=== PATIENT | female | born 1935 | race Caucasian/White ===

== ENCOUNTER 2020-04-11 14:46 | Inpatient (IN) ==
[2020-04-11 17:52] LABS: Adenovirus Not Detected (Not Detect); Bordetella Pertussis Not Detected (Not Detect); Chlamydophila pneumoniae Not Detected (Not Detect); Coronavirus 229E Not Detected (Not Detect); Coronavirus HKU1 Not Detected (Not Detect); Coronavirus NL63 Not Detected (Not Detect); Coronavirus OC43 Not Detected (Not Detect); Human Metapneumovirus Not Detected (Not Detect); Human Rhinovirus/Enterovirus Not Detected (Not Detect); Influenza A Subtype 2009 H1 Not Detected (Not Detect); Influenza B Not Detected (Not Detect); Mycoplasma pneumoniae Not Detected (Not Detect); Parainfluenza Virus 1 Not Detected (Not Detect); Parainfluenza Virus 2 Not Detected (Not Detect); Parainfluenza Virus 3 Not Detected (Not Detect); Parainfluenza Virus 4 Not Detected (Not Detect); Respiratory Syncytial Virus Not Detected (Not Detect); SARS-CoV-2 Not Detected (Not Detect)
[2020-04-11] MEDS ORDERED: *HR* Promethazine 25 MG/ML VIAL IVP PRN (19:23)
[2020-04-11] MEDS ORDERED: Acetaminophen 325 MG TABLET PO PRN (19:23)
[2020-04-11] MEDS ORDERED: Naloxone 0.4 MG/ML INJ IVP PRN (19:23)
[2020-04-11 19:50] LABS: Basophils % 0.5 %; Eosinophils # 0.3 K/mcL (0.0-0.6); Eosinophils % 5.7 %; Hematocrit 26.6 % (35.3-44.9); Hemoglobin 8.1 g/dL (11.5-15.4); Immature Granulocytes % 0.9 % (0-4); Lymphocytes % 34.5 %; Mean Corpuscular HGB Conc 30.5 g/dL (31.6-35.5); Mean Corpuscular Hemoglobin 27.6 pg (28.0-33.3); Mean Corpuscular Volume 90.8 fL (83.0-100.0); Mean Platelet Volume 10.2 fL (9.4-12.4); Monocytes # 0.5 K/mcL (0.0-1.3); Monocytes % 8.4 %; Neutrophils # 2.9 K/mcL (1.6-8.9); Platelet Count 215 K/mcL (140-400); Red Blood Count 2.93 M/mcL (3.82-4.97); Red Cell Distribution Width 14.5 % (11.5-14.5); White Blood Count 5.7 K/mcL (4.3-11.1)
[2020-04-11] MEDS: 0.9 % Sodium Chloride 1,000 ML IVC SCH (20:49)
[2020-04-11] MEDS ORDERED: Dextrose Gel 15 GM/37.5 ML TUBE PO PRN ×2 (20:57)
[2020-04-11] MEDS ORDERED: *HR* Dextrose 50 % in Water (Vial) 50 ML VIAL IVP PRN (20:57)
[2020-04-11] MEDS ORDERED: D5% in Water 1,000 ML IVC PRN (20:57)
[2020-04-11] MEDS: Insulin LISPRO 300 UNITS/3 ML VIAL SQ SCH (21:13)
[2020-04-11] MEDS ORDERED: Budesonide/Formoterol 160/4.5 1 PUFF INH IH SCH (21:22)
[2020-04-11] MEDS ORDERED: Ipratropium/Albuterol Neb 3 ML IH PRN (21:23)
[2020-04-11 22:21] LABS: Estimated Average Glucose 120 mg/dl
[2020-04-12 05:22] LABS: INR 1.2; Prothrombin Time 13.5 Seconds (9.4-12.1)
[2020-04-12 05:38] LABS: Basophils % 0.4 %; Eosinophils # 0.3 K/mcL (0.0-0.6); Eosinophils % 5.5 %; Hematocrit 23.6 % (35.3-44.9); Hemoglobin 7.3 g/dL (11.5-15.4); Immature Granulocytes % 0.9 % (0-4); Lymphocytes # 1.7 K/mcL (0.6-4.6); Lymphocytes % 36.6 %; Mean Corpuscular HGB Conc 30.9 g/dL (31.6-35.5); Mean Corpuscular Hemoglobin 28.7 pg (28.0-33.3); Mean Corpuscular Volume 92.9 fL (83.0-100.0); Mean Platelet Volume 10.7 fL (9.4-12.4); Monocytes # 0.4 K/mcL (0.0-1.3); Monocytes % 8.8 %; Neutrophils # 2.2 K/mcL (1.6-8.9); Platelet Count 200 K/mcL (140-400); Red Blood Count 2.54 M/mcL (3.82-4.97); Red Cell Distribution Width 14.6 % (11.5-14.5); Segmented Neutrophils % 47.8 %; White Blood Count 4.5 K/mcL (4.3-11.1)
[2020-04-12 05:46] LABS: Albumin 2.6 g/dL (3.5-5.7); Bilirubin,Total 0.3 mg/dL (0.3-1.0); Calcium 7.9 mg/dL (8.6-10.3); Globulin 2.5 g/dL (2.4-3.5); Magnesium 2.5 mg/dL (1.6-2.6); Phosphorous 3.4 mg/dL (2.7-4.5); Potassium 5.1 mEq/L (3.5-5.1); Total Protein 5.1 g/dL (6.4-8.9)
[2020-04-12] MEDS: Pantoprazole 40 MG VIAL IVP SCH ×2 (06:02→17:29)
[2020-04-12 06:35] LABS: Bilirubin,Urine Negative (Negative); Blood,Urine Negative (Negative); Clarity,Urine Clear (Clear); Color,Urine Light-Yellow (Yellow); Glucose,Urine (UA) Normal (Normal); Ketones,Urine Negative (Negative); Leukocyte Esterase,Urine Negative (Negative); Nitrite,Urine Negative (Negative); Protein,Urine Negative (Neg-Trace); Specific Gravity,Urine 1.017 (1.010-1.025); Urobilinogen,Urine Normal (Normal)
[2020-04-12] MEDS: Budesonide/Formoterol 160/4.5 1 PUFF INH IH SCH ×3 (07:37→22:23)
[2020-04-12] MEDS: Insulin LISPRO 300 UNITS/3 ML VIAL SQ SCH ×3 (08:20→17:24)
[2020-04-12] MEDS: Cholecalciferol (D-3) 1,000 UNIT (25MCG) TABLET PO SCH (08:51)
[2020-04-12] MEDS: 0.9 % Sodium Chloride 1,000 ML IVC SCH (10:17)
[2020-04-12] MEDS ORDERED: SODIUM CHLORIDE/NAHCO3/KCL/PEG 4,000 ML SOLN.RECON PO ONE (17:00)
[2020-04-12 20:24] LABS: Hematocrit 26.5 % (35.3-44.9); Hemoglobin 8.1 g/dL (11.5-15.4)
[2020-04-12] MEDS ORDERED: Insulin DETEMIR 100 UNIT/ML X5UNITS SQ SCH (21:00)
[2020-04-12] MEDS ORDERED: Fenofibrate 54 MG TABLET PO SCH (21:00)
[2020-04-13 03:27] LABS: Basophils % 0.5 %; Eosinophils # 0.2 K/mcL (0.0-0.6); Eosinophils % 3.5 %; Hematocrit 26.4 % (35.3-44.9); Hemoglobin 8.1 g/dL (11.5-15.4); Immature Granulocytes % 0.8 % (0-4); Lymphocytes # 1.9 K/mcL (0.6-4.6); Mean Corpuscular HGB Conc 30.7 g/dL (31.6-35.5); Mean Corpuscular Hemoglobin 28.2 pg (28.0-33.3); Mean Platelet Volume 10.6 fL (9.4-12.4); Monocytes # 0.7 K/mcL (0.0-1.3); Monocytes % 10.6 %; Neutrophils # 3.6 K/mcL (1.6-8.9); Platelet Count 229 K/mcL (140-400); Red Blood Count 2.87 M/mcL (3.82-4.97); Red Cell Distribution Width 14.6 % (11.5-14.5); Segmented Neutrophils % 55.6 %; White Blood Count 6.5 K/mcL (4.3-11.1)
[2020-04-13 03:38] LABS: Calcium 8.2 mg/dL (8.6-10.3); Potassium 5.4 mEq/L (3.5-5.1)
[2020-04-13] MEDS: Pantoprazole 40 MG VIAL IVP SCH (05:02)
[2020-04-13] MEDS: Insulin LISPRO 300 UNITS/3 ML VIAL SQ SCH ×2 (08:38→11:01)
[2020-04-13] MEDS: Budesonide/Formoterol 160/4.5 1 PUFF INH IH SCH (09:42)
[2020-04-13] MEDS: Cholecalciferol (D-3) 1,000 UNIT (25MCG) TABLET PO SCH (10:05)
[2020-04-13] MEDS ORDERED: Lidocaine -MPF 2% 2 ML VIAL ONE (14:30)
[2020-04-13 16:07] VITALS: BP 149/51
== END 2020-04-13 16:48 | disposition home or self-care (01) | DRG 377 ==
LOC: CDU → SUATTDRO 16:18 → CDU 17:49 → 2ANU 17:53
PROVIDERS: ADMIT Pharmacist; ATTEND Internal Medicine

== ENCOUNTER 2020-12-10 20:59 | Inpatient (IN) ==
[2020-12-10] MEDS ORDERED: Melatonin 3 MG TABLET PO PRN (23:26)
[2020-12-10] MEDS ORDERED: Acetaminophen 325 MG TABLET PO PRN (23:26)
[2020-12-10] MEDS ORDERED: Naloxone 0.4 MG/ML INJ IVP PRN (23:26)
[2020-12-10] MEDS ORDERED: *HR* Promethazine 25 MG/ML VIAL IM PRN (23:26)
[2020-12-10] MEDS ORDERED: *HR* OxyCODONE Immed Rel 5 MG TABLET PO PRN (23:26)
[2020-12-10] MEDS ORDERED: *HR* HYDROcodone/Acet 5/325 mg TABLET PO PRN (23:26)
[2020-12-10] MEDS ORDERED: Ringers Solution, Lactated 1,000 ML IVC SCH (23:30)
[2020-12-10] MEDS: Ondansetron 4 MG/2 ML VIAL IVP PRN (23:48)
[2020-12-11] MEDS ORDERED: *HR* Dextrose 50 % in Water (Vial) 50 ML VIAL IVP PRN (00:17)
[2020-12-11] MEDS ORDERED: D5% in Water 1,000 ML IVC PRN (00:17)
[2020-12-11] MEDS ORDERED: Dextrose Gel 15 GM/37.5 ML TUBE PO PRN ×2 (00:17)
[2020-12-11 00:30] LABS: Basophils % 0.2 %; Mean Corpuscular Volume 98.1 fL (83.0-100.0)
[2020-12-11 00:32] LABS: Hematocrit 30.7 % (35.3-44.9); Hemoglobin 8.9 g/dL (11.5-15.4); Immature Granulocytes % 0.4 % (0-4); Immature Platelets 7.2 % (1.1-6.1); Lymphocytes # 1.2 K/mcL (0.6-4.6); Lymphocytes % 25.6 %; Mean Corpuscular Hemoglobin 28.4 pg (28.0-33.3); Mean Platelet Volume 11.6 fL (9.4-12.4); Monocytes # 0.5 K/mcL (0.0-1.3); Monocytes % 10.3 %; Neutrophils # 3.1 K/mcL (1.6-8.9); Platelet Count 138 K/mcL (140-400); Red Blood Count 3.13 M/mcL (3.82-4.97); Red Cell Distribution Width 15.6 % (11.5-14.5); Segmented Neutrophils % 63.5 %; White Blood Count 4.8 K/mcL (4.3-11.1)
[2020-12-11 00:37] LABS: Bilirubin,Total 0.4 mg/dL (0.3-1.0); Calcium 8.3 mg/dL (8.6-10.3); Globulin 2.9 g/dL (2.4-3.5); Magnesium 2.4 mg/dL (1.6-2.6); Phosphorous 5.7 mg/dL (2.7-4.5); Potassium 5.5 mEq/L (3.5-5.1); Total Protein 5.9 g/dL (6.4-8.9)
[2020-12-11] MEDS ORDERED: SODIUM ZIRCONIUM CYCLOSILICATE 5 GM POWD.PACK PO ONE ×2 (02:28→13:51)
[2020-12-11] MEDS ORDERED: Perflutren Lipid Microsphere 1.3 ML in 0.9 % Sodium Chloride 8.7 ML IVP PRN (02:34)
[2020-12-11] MEDS ORDERED: Furosemide 40 MG/4 ML VIAL IVP ONE (02:37)
[2020-12-11] MEDS: *HR* Heparin 5,000 UNIT/ML VIAL SQ SCH ×2 (06:05→12:32)
[2020-12-11 06:40] LABS: Troponin I 0.15 ng/mL (< 0.04)
[2020-12-11 06:58] LABS: Calcium 8.3 mg/dL (8.6-10.3); Potassium 5.8 mEq/L (3.5-5.1)
[2020-12-11] MEDS: Insulin LISPRO 300 UNITS/3 ML VIAL SUBQ SCH ×4 (07:47→21:55)
[2020-12-11 07:57] LABS: Bacteria,Urine Few per hpf (None-Few); Bilirubin,Urine Negative (Negative); Blood,Urine Negative (Negative); Clarity,Urine Turbid (Clear); Color,Urine Yellow (Yellow); Glucose,Urine (UA) Normal (Normal); Hyaline Casts,Urine Moderate per lpf (None Seen); Ketones,Urine Negative (Negative); Leukocyte Esterase,Urine Negative (Negative); Mucus,Urine Few per lpf (None-Few); Nitrite,Urine Negative (Negative); Protein,Urine 30 mg/dL (Neg-Trace); RBC,Urine 0-3 per hpf (0-3); Specific Gravity,Urine 1.014 (1.010-1.025); Squamous Epithelial Cell,Urine Few per hpf (None-Few); Urobilinogen,Urine Normal (Normal); WBC,Urine 0-3 per hpf (0-3)
[2020-12-11] MEDS ORDERED: Calcium Gluconate 1gm/50mL 1 GM/50 ML BAG IVPB ONE (07:57)
[2020-12-11] MEDS ORDERED: Furosemide 40 MG/4 ML VIAL IVP SCH (08:00)
[2020-12-11 08:07] LABS: Protein/Creatinine Ratio,Urine 0.31 mg/mg (0.00-0.20)
[2020-12-11] MEDS: Budesonide/Formoterol 160/4.5 1 PUFF INH IH SCH ×2 (10:10→22:16)
[2020-12-11] MEDS: Piperacillin/Tazobactam 3.375 GM in 0.9 % Sodium Chloride Mini Bag 100 ML IVPB SCH ×2 (12:32→21:57)
[2020-12-11 13:33] LABS: % Iron Saturation 11 % (15-50); Iron 42 mcg/dL (50-170); Transferrin 261 mg/dL (203-362)
[2020-12-11 13:36] LABS: Potassium 5.8 mEq/L (3.5-5.1)
[2020-12-11 13:43] LABS: Troponin I 0.47 ng/mL (< 0.04)
[2020-12-11] MEDS ORDERED: *HR* Heparin 5,000 UNIT/ML VIAL IVP ONE (14:34)
[2020-12-11] MEDS ORDERED: *HR* Heparin 5,000 UNIT/ML VIAL IVP PRN ×2 (14:34)
[2020-12-11] MEDS ORDERED: Ipratropium Neb 0.5 MG NEBULIZER IH PRN (14:43)
[2020-12-11] MEDS ORDERED: Acetaminophen 325 MG TABLET PO PRN (14:49)
[2020-12-11 15:06] LABS: Hemoglobin 8.5 g/dL (11.5-15.4); Mean Corpuscular HGB Conc 28.3 g/dL (31.6-35.5); Mean Corpuscular Hemoglobin 28.4 pg (28.0-33.3); Mean Corpuscular Volume 100.3 fL (83.0-100.0); Mean Platelet Volume 11.2 fL (9.4-12.4); Platelet Count 136 K/mcL (140-400); Red Blood Count 2.99 M/mcL (3.82-4.97); Red Cell Distribution Width 15.6 % (11.5-14.5); White Blood Count 4.9 K/mcL (4.3-11.1)
[2020-12-11 15:13] LABS: Heparin anti-factor XA UFH 0.07 IU/mL (0.30-0.70)
[2020-12-11 15:14] LABS: Prothrombin Time 11.5 Seconds (9.4-12.1)
[2020-12-11] MEDS: Ipratropium/Albuterol Neb 3 ML IH SCH ×2 (15:50→22:16)
[2020-12-11] MEDS: Aspirin Enteric Coated 325 MG Tablet PO ONE ×2 (16:20→16:23)
[2020-12-11] MEDS: Heparin 25,000UNIT/250ML 1/2NS 25,000 UNIT/250 ML IV.SOLN IVC SCH (16:26)
[2020-12-11 17:09] LABS: Protein/Creatinine Ratio,Urine 0.34 mg/mg (0.00-0.20); Sodium, Urine 48.8 mEq/L
[2020-12-11 19:24] LABS: Hematocrit 29.6 % (35.3-44.9); Hemoglobin 8.5 g/dL (11.5-15.4)
[2020-12-11 19:46] LABS: Potassium 5.8 mEq/L (3.5-5.1)
[2020-12-11 19:51] LABS: Troponin I 0.81 ng/mL (< 0.04)
[2020-12-11] MEDS ORDERED: Insulin DETEMIR 100 UNIT/ML X5UNITS SUBQ SCH (21:00)
[2020-12-11] MEDS: Fenofibrate 54 MG TABLET PO SCH (21:57)
[2020-12-12 00:49] LABS: Eosinophils % 1.5 %; Mean Platelet Volume 12.1 fL (9.4-12.4); Red Cell Distribution Width 15.5 % (11.5-14.5)
[2020-12-12 00:50] LABS: Basophils % 0.2 %; Eosinophils # 0.1 K/mcL (0.0-0.6); Hematocrit 27.4 % (35.3-44.9); Hemoglobin 8.2 g/dL (11.5-15.4); Immature Granulocytes % 0.4 % (0-4); Lymphocytes # 1.2 K/mcL (0.6-4.6); Lymphocytes % 23.1 %; Mean Corpuscular HGB Conc 29.9 g/dL (31.6-35.5); Mean Corpuscular Hemoglobin 29.8 pg (28.0-33.3); Mean Corpuscular Volume 99.6 fL (83.0-100.0); Monocytes # 0.5 K/mcL (0.0-1.3); Monocytes % 10.1 %; Neutrophils # 3.4 K/mcL (1.6-8.9); Platelet Count 108 K/mcL (140-400); Red Blood Count 2.75 M/mcL (3.82-4.97); Segmented Neutrophils % 64.7 %; White Blood Count 5.2 K/mcL (4.3-11.1)
[2020-12-12 01:15] LABS: Hypochromasia Present (Not Present); Platelet Estimate Normal (Normal); Toxic Granulation Present (Not Present)
[2020-12-12 01:24] LABS: Calcium 8.2 mg/dL (8.6-10.3); Chol/HDL Ratio 2.7 (0-4.9); Magnesium 2.4 mg/dL (1.6-2.6); Potassium 5.8 mEq/L (3.5-5.1); Troponin I 0.9 ng/mL (< 0.04); Uric Acid 8.4 mg/dL (2.3-7.6)
[2020-12-12 01:25] LABS: Estimated Average Glucose 108 mg/dl; Hemoglobin A1C 5.4 %
[2020-12-12 02:17] LABS: Hepatitis B Surface Antigen Nonreactive (Nonreactive)
[2020-12-12 02:46] LABS: Hepatitis C Virus Antibody Nonreactive (Nonreactive)
[2020-12-12 02:47] LABS: Hepatitis A Antibody IgM Nonreactive (Nonreactive); Hepatitis B Core IgM Nonreactive (Nonreactive)
[2020-12-12] MEDS: Piperacillin/Tazobactam 3.375 GM in 0.9 % Sodium Chloride Mini Bag 100 ML IVPB SCH ×3 (03:55→20:58)
[2020-12-12] MEDS: Ipratropium/Albuterol Neb 3 ML IH SCH ×4 (03:57→22:31)
[2020-12-12] MEDS: Insulin LISPRO 300 UNITS/3 ML VIAL SUBQ SCH ×4 (07:40→20:03)
[2020-12-12] MEDS: Aspirin Enteric Coated 81 MG Tablet PO SCH (08:21)
[2020-12-12] MEDS: Furosemide 40 MG/4 ML VIAL IVP SCH (08:21)
[2020-12-12] MEDS ORDERED: Calcium Gluconate 1gm/50mL 1 GM/50 ML BAG IVPB ONE (08:22)
[2020-12-12] MEDS ORDERED: SODIUM ZIRCONIUM CYCLOSILICATE 5 GM POWD.PACK PO SCH (09:00)
[2020-12-12 09:58] LABS: ABG Base Excess 8 mEq/L (-2 to 3); ABG HCO3 37 mEq/L (21-27); ABG Oxygen Saturation 88 % (95-98); ABG PCO2 84 mmHg (35-45); ABG PH 7.26 pH Units (7.32-7.45); ABG PO2 68 mmHg (85-104); ABG TCO2 40 mEq/L (20-26)
[2020-12-12] MEDS: Ondansetron 4 MG/2 ML VIAL IVP PRN (10:01)
[2020-12-12] MEDS: Budesonide/Formoterol 160/4.5 1 PUFF INH IH SCH ×2 (10:55→22:31)
[2020-12-12 15:33] LABS: ABG Base Excess 7 mEq/L (-2 to 3); ABG HCO3 35 mEq/L (21-27); ABG Oxygen Saturation 91 % (95-98); ABG PCO2 77 mmHg (35-45); ABG PH 7.26 pH Units (7.32-7.45); ABG PO2 73 mmHg (85-104); ABG TCO2 37 mEq/L (20-26)
[2020-12-12 16:05] LABS: Hematocrit 26.9 % (35.3-44.9)
[2020-12-12] MEDS ORDERED: *HR* LORazepam 2 MG/ML VIAL IVP PRN (16:56)
[2020-12-12 17:05] LABS: Troponin I 1.69 ng/mL (< 0.04)
[2020-12-12 17:28] LABS: Potassium 6.1 mEq/L (3.5-5.1)
[2020-12-12] MEDS ORDERED: Albuterol 2.5 MG/3 ML NEBULIZER IH ONE (17:36)
[2020-12-12] MEDS ORDERED: Furosemide 20 MG/2 ML VIAL IVP ONE (17:37)
[2020-12-12] MEDS: SODIUM ZIRCONIUM CYCLOSILICATE 5 GM POWD.PACK PO SCH (21:07)
[2020-12-12] MEDS: Fenofibrate 54 MG TABLET PO SCH (21:08)
[2020-12-13 01:17] LABS: Basophils % 0.2 %; Eosinophils % 0.5 %; Hematocrit 23.1 % (35.3-44.9); Hemoglobin 6.9 g/dL (11.5-15.4); Immature Granulocytes % 0.5 % (0-4); Lymphocytes % 17.1 %; Mean Corpuscular HGB Conc 29.9 g/dL (31.6-35.5); Mean Corpuscular Hemoglobin 28.6 pg (28.0-33.3); Mean Corpuscular Volume 95.9 fL (83.0-100.0); Mean Platelet Volume 11.6 fL (9.4-12.4); Monocytes # 0.5 K/mcL (0.0-1.3); Monocytes % 9.1 %; Neutrophils # 4.1 K/mcL (1.6-8.9); Platelet Count 100 K/mcL (140-400); Red Blood Count 2.41 M/mcL (3.82-4.97); Red Cell Distribution Width 15.3 % (11.5-14.5); Segmented Neutrophils % 72.6 %; White Blood Count 5.6 K/mcL (4.3-11.1)
[2020-12-13 01:25] LABS: VBG HCO3 33 mEq/L (21-27); VBG PCO2 61 mmHg (41-51); VBG PH 7.34 pH Units (7.32-7.42); VBG PO2 117 mmHg (25-50)
[2020-12-13] MEDS: Heparin 25,000UNIT/250ML 1/2NS 25,000 UNIT/250 ML IV.SOLN IVC SCH (01:34)
[2020-12-13 01:37] LABS: Calcium 7.7 mg/dL (8.6-10.3); Magnesium 2.3 mg/dL (1.6-2.6); Potassium 5.9 mEq/L (3.5-5.1)
[2020-12-13] MEDS: Ipratropium/Albuterol Neb 3 ML IH SCH ×4 (03:46→22:31)
[2020-12-13] MEDS: Piperacillin/Tazobactam 3.375 GM in 0.9 % Sodium Chloride Mini Bag 100 ML IVPB SCH (05:02)
[2020-12-13] MEDS ORDERED: 0.9 % Sodium Chloride 250 ML IVC SCH (07:30)
[2020-12-13] MEDS: Insulin LISPRO 300 UNITS/3 ML VIAL SUBQ SCH (08:24)
[2020-12-13] MEDS: SODIUM ZIRCONIUM CYCLOSILICATE 5 GM POWD.PACK PO SCH (08:25)
[2020-12-13] MEDS: Aspirin Enteric Coated 81 MG Tablet PO SCH (08:25)
[2020-12-13] MEDS: Furosemide 40 MG/4 ML VIAL IVP SCH (08:34)
[2020-12-13] MEDS ORDERED: Metoprolol XL (24 HR) Succ 25 MG TAB.ER.24H PO SCH (09:00)
[2020-12-13] MEDS: Budesonide/Formoterol 160/4.5 1 PUFF INH IH SCH ×2 (09:52→22:31)
[2020-12-13] MEDS ORDERED: Atropine 1% Opth Drops 100 DROP/5 ML BOTTLE SL PRN (09:59)
[2020-12-13] MEDS ORDERED: Haloperidol Oral Conc 10 MG/5 ML UDC PO PRN (10:00)
[2020-12-13] MEDS ORDERED: *HR* LORazepam 2 MG/ML VIAL IVP PRN (10:01)
[2020-12-14] MEDS: Ipratropium/Albuterol Neb 3 ML IH SCH (03:42)
[2020-12-14 10:52] VITALS: BP 113/39
[2020-12-14 21:09] LABS: Lambda Qnt Free Light Chains 22.92 mg/L (5.71-26.30)
[2020-12-15 09:45] LABS: Kappa Qnt Free Light Chains 50.37 mg/L (3.30-19.40)
[2020-12-15 09:49] LABS: ANA IgG by ELISA NONE DETECTED (None Detected)
[2020-12-16 09:50] LABS: Serine Protease-3 Antibody 0 AU/mL (0-19)
== END 2020-12-14 10:55 | disposition hospice, inpatient (51) | DRG 280 ==
LOC: 2ANU → SUATTDRO 22:33 → 2NENU 12-12 11:53
PROVIDERS: ADMIT Family Medicine; ATTEND Internal Medicine

== ENCOUNTER 2020-12-14 09:33 | Inpatient (IN) ==
[2020-12-14] MEDS ORDERED: Acetaminophen 650 MG RECTAL SUPP RC PRN (10:41)
[2020-12-14] MEDS ORDERED: Atropine 1% Opth Drops 100 DROP/5 ML BOTTLE SL PRN (10:42)
[2020-12-14] MEDS ORDERED: Haloperidol Oral Conc 10 MG/5 ML UDC PO PRN (10:43)
[2020-12-14] MEDS ORDERED: *HR* LORazepam Oral Conc 2 MG/ML SL PRN (10:43)
[2020-12-14] MEDS ORDERED: Scopolamine Patch 1.5 MG PATCH.TD72 TD SCH (10:45)
[2020-12-14 20:22] VITALS: BP 99/57
== END 2020-12-14 23:35 | disposition expired | DRG 951 ==
LOC: 2NENU 10:56 → 2ANU 13:48
PROVIDERS: ADMIT Internal Medicine Hospice and Palliative Medicine; ATTEND Internal Medicine Hospice and Palliative Medicine